=== PATIENT | male | born 1965 | race Caucasian/White ===

== ENCOUNTER 2020-03-23 14:05 | Emergency (ER) | payer OTHER ==
[2020-03-23 14:12] VITALS: BP 155/93; PULSE 96; TEMP 99.5; BMI 36.2
[2020-03-23 15:23] LABS: ALBUMIN 4.4 g/dl (3.4-5.0); CREATININE 1.1 mg/dl (0.55-1.3); POTASSIUM 3.9 mmol/L (3.5-5.1); TOT PROT 7.5 g/dl (6.4-8.2)
[2020-03-23 16:39] LABS: BASO % 0.4 % (0-2.0); EOS % 0.5 % (0-4.5); HEMOGLOBIN 15.6 GM/dL (11.7-16.9); LYMPH % 9.9 % (8-40); MCHC 35.6 g/dl (32.0-35.9); MEAN CELL VOLUME 87.1 fl (80-96); MEAN PLT VOLUME 8.8 fl (7.5-11.1); NEUT % 84.2 % (42.8-82.8); PLATELET COUNT 232 K/MM3 (134-434); RBC 5.05 M/mm3 (4.00-5.60); WHITE BLOOD COUNT 9.2 K/mm3 (4.0-10.0)
== END 2020-03-23 18:49 | disposition home or self-care (01) ==
LOC: FER 14:05
DX: R07.89 Other chest pain (principal); D17.23 Benign lipomatous neoplasm of skin and subcutaneous tissue of right leg
CPT/HCPCS: 36415; 71045-TC-FY; 80053; 84484; 85025; 93005; 99284-25; C9803; U0003

== ENCOUNTER 2020-04-26 05:36 | Day surgery (SDC) | payer OTHER ==
[2020-04-22 16:48] VITALS: BMI 32.1
[2020-04-26] MEDS ORDERED: PROPOFOL 20 ML ONE ×2 (10:39)
[2020-04-26] MEDS ORDERED: MIDAZOLAM HCL 2 MG/2 ML SINGLE DOSE VIAL ONE (10:39)
[2020-04-26] MEDS ORDERED: LIDOCAINE HCL 1%, 10 MG/ML (20ML VIAL) ONE ×2 (10:46→11:36)
[2020-04-26] MEDS ORDERED: ceFAZolin SODIUM 1 GM VIAL ONE (11:01)
[2020-04-26] MEDS ORDERED: ceFAZolin SODIUM 1 GM VIAL IVPB ONE (11:03)
[2020-04-26] MEDS ORDERED: DEXAMETHASONE SOD PHOSPHATE 4 MG/1 ML VIAL ONE (11:17)
[2020-04-26] MEDS ORDERED: ONDANSETRON 4 MG/2 ML VIAL ONE (11:17)
[2020-04-26] MEDS ORDERED: BUPIVACAINE HCL/PF 0.5% (5 MG/ML) 30 ML VIAL IJ ONE ×2 (11:22)
[2020-04-26] MEDS ORDERED: LIDOCAINE HCL 1%, 10 MG/ML (20ML VIAL) SQ ONE ×2 (11:22)
[2020-04-26] MEDS ORDERED: IBUPROFEN 800 MG/8 ML IJ IVPB PRN (12:18)
[2020-04-26] MEDS ORDERED: ONDANSETRON 4 MG/2 ML VIAL IVPUSH PRN (12:18)
[2020-04-26] MEDS ORDERED: oxyCODONE HCL 5 MG TABLET PO PRN (12:18)
[2020-04-26] MEDS ORDERED: LACTATED RINGERS SOLUTION 1,000 ML IV SCH (12:30)
[2020-04-26] MEDS ORDERED: ACETAMINOPHEN 1000 MG/100 ML VIAL (NON FORMULARY) IVPB PRN (12:30)
[2020-04-26 14:46] VITALS: BP 112/61; PULSE 62; TEMP 98.2
== END 2020-04-26 14:46 | disposition home or self-care (01) ==
LOC: JASU-SURG 05:36
PROVIDERS: ATTEND Surgery
PROC: 0JBL0ZZ Excision of Right Upper Leg Subcutaneous Tissue and Fascia, Open Approach (ICD-10-PCS; principal; 2020-04-26 09:30)
DX: D17.23 Benign lipomatous neoplasm of skin and subcutaneous tissue of right leg (principal)
CPT/HCPCS: 88304-TC; 94760

== ENCOUNTER 2022-01-03 20:08 | Inpatient (IN) | payer OTHER ==
[2022-01-03] MEDS ORDERED: SODIUM CHLORIDE 0.9% 1000 ML INFUS.BAG IV ONE (20:20)
[2022-01-03] MEDS ORDERED: ONDANSETRON 4 MG/2 ML VIAL IVPUSH ONE (20:20)
[2022-01-03] MEDS ORDERED: ONDANSETRON 4 MG/2 ML VIAL ONE (20:27)
[2022-01-03 20:44] LABS: ALBUMIN 4.1 g/dl (3.4-5.0); BILIRUBIN,TOTAL 1.9 mg/dl (0.2-1); CALCIUM 9.2 mg/dl (8.5-10); TOT PROT 7.2 g/dl (6.4-8.2)
[2022-01-03 20:48] LABS: HEMATOCRIT 49.4 % (35.4-49); HEMOGLOBIN 17.2 G/dL (11.7-16.9); MCH 30.2 pg (25.7-33.7); MCHC 34.9 g/dl (32.0-35.9); MEAN CELL VOLUME 86.5 fl (80-96); MEAN PLT VOLUME 8.2 fl (7.5-11.1); PLATELET COUNT 265.8 10^3/uL (134-434); RBC 5.71 10^6/uL (4.00-5.60); RDW 14.2 % (11.9-15.9); WHITE BLOOD COUNT 25.8 10^3/uL (4.0-10.8)
[2022-01-03 21:33] LABS: PLATELET ESTIMATE ADEQUATE
[2022-01-03 22:14] VITALS: BMI 31.4
[2022-01-04] MEDS ORDERED: LIDOCAINE VISCOUS 2% ORAL/TOP 15 ML UNIT-DOSE CUP ONE (02:57)
[2022-01-04] MEDS: DEXTROSE 5%-0.45% SALINE 1,000 ML IV SCH (05:50)
[2022-01-04] MEDS: PANTOPRAZOLE SODIUM 40 MG VIAL IVPUSH SCH ×2 (10:11→21:14)
[2022-01-04 19:07] LABS: HEMOGLOBIN 14.9 G/dL (11.7-16.9); MCH 30.8 pg (25.7-33.7); MCHC 35.5 g/dl (32.0-35.9); MEAN CELL VOLUME 86.8 fl (80-96); MEAN PLT VOLUME 8.1 fl (7.5-11.1); PLATELET COUNT 220.1 10^3/uL (134-434); RBC 4.84 10^6/uL (4.00-5.60); WHITE BLOOD COUNT 13.7 10^3/uL (4.0-10.8)
[2022-01-04 19:24] LABS: ALBUMIN 3.5 g/dl (3.4-5.0); BILIRUBIN,TOTAL 1.8 mg/dl (0.2-1); CALCIUM 8.5 mg/dl (8.5-10); CREATININE 0.9 mg/dl (0.55-1.3)
[2022-01-04 20:41] LABS: PLATELET ESTIMATE ADEQUATE
[2022-01-05 08:22] LABS: ALBUMIN 3.5 g/dl (3.4-5.0); BILIRUBIN,TOTAL 2.1 mg/dl (0.2-1); CALCIUM 8.4 mg/dl (8.5-10); CREATININE 0.9 mg/dl (0.55-1.3)
[2022-01-05 09:20] LABS: BASO % 0.4 % (0-2.0); EOS % 1.2 % (0-4.5); HEMATOCRIT 42.1 % (35.4-49); HEMOGLOBIN 14.5 GM/dL (11.7-16.9); LYMPH % 9.8 % (8-40); MCH 29.4 pg (25.7-33.7); MCHC 34.4 g/dl (32.0-35.9); MEAN CELL VOLUME 85.4 fl (80-96); MEAN PLT VOLUME 8.9 fl (7.5-11.1); MONO % 8.3 % (3.8-10.2); NEUT % 80.3 % (42.8-82.8); PLATELET COUNT 232 10^3/uL (134-434); RBC 4.94 M/mm3 (4.00-5.60); RDW 13.3 % (11.9-15.9); WHITE BLOOD COUNT 11.9 K/mm3 (4.0-10.0)
[2022-01-05] MEDS: DEXTROSE 5%-0.45% SALINE 1,000 ML IV SCH (09:26)
[2022-01-05] MEDS: PANTOPRAZOLE SODIUM 40 MG VIAL IVPUSH SCH (09:26)
[2022-01-05] MEDS ORDERED: LIDOCAINE HCL/PF 2% SDV 5ML VIAL ONE (09:57)
[2022-01-05 13:27] VITALS: BP 143/80; PULSE 74; RESP 19; TEMP 99.2
[2022-01-05] MEDS ORDERED: POTASSIUM CHLORIDE 20 MEQ PREMIX IVPB 100 ML IVPB ONE (13:32)
[2022-01-05] MEDS ORDERED: KCL 10 MEQ IVPB 10 MEQ/100 ML INFUS.BAG IVPB SCH (13:45)
== END 2022-01-05 15:15 | disposition short-term general hospital (02) | DRG 392 ==
LOC: FER 20:08 → FM/S 01-04 05:49
PROVIDERS: ADMIT Internal Medicine
PROC: 0DB98ZX Excision of Duodenum, Via Natural or Artificial Opening Endoscopic, Diagnostic (ICD-10-PCS; principal; 2022-01-05 09:51)
DX: K31.89 Other diseases of stomach and duodenum (principal); K31.1 Adult hypertrophic pyloric stenosis; I10 Essential (primary) hypertension; E78.5 Hyperlipidemia, unspecified; K29.60 Other gastritis without bleeding; K27.9 Peptic ulcer, site unspecified, unspecified as acute or chronic, without hemorrhage or perforation; N40.0 Benign prostatic hyperplasia without lower urinary tract symptoms; E66.9 Obesity, unspecified; Z68.31 Body mass index [BMI] 31.0-31.9, adult; Z87.11 Personal history of peptic ulcer disease
CPT/HCPCS: 0241U-QW; 36415; 71045-TC-FY; 74177-TC; 80048; 80053; 81003; 81015; 82962; 83690; 85025; 85027; 87086; 88305-TC; 93005; 99285-25; Q9967

== ENCOUNTER 2024-07-14 09:14 | Day surgery (SDC) | payer OTHER ==
[2024-07-08 16:11] VITALS: BMI 30.7
[2024-07-14] MEDS ORDERED: PROPOFOL 120 ML ONE (11:01)
[2024-07-14 15:56] VITALS: BP 122/80; PULSE 82; RESP 20; TEMP 97.4
== END 2024-07-14 12:08 | disposition home or self-care (01) ==
LOC: FASU-ENDO 09:14
PROVIDERS: ATTEND Internal Medicine Gastroenterology
PROC: 0DB48ZX Excision of Esophagogastric Junction, Via Natural or Artificial Opening Endoscopic, Diagnostic (ICD-10-PCS; 2024-07-14)
PROC: 0DB78ZX Excision of Stomach, Pylorus, Via Natural or Artificial Opening Endoscopic, Diagnostic (ICD-10-PCS; 2024-07-14)
PROC: 0DB68ZX Excision of Stomach, Via Natural or Artificial Opening Endoscopic, Diagnostic (ICD-10-PCS; 2024-07-14)
PROC: 0DBK8ZX Excision of Ascending Colon, Via Natural or Artificial Opening Endoscopic, Diagnostic (ICD-10-PCS; principal; 2024-07-14 10:22)
DX: R93.3 Abnormal findings on diagnostic imaging of other parts of digestive tract (principal); Z98.0 Intestinal bypass and anastomosis status
CPT/HCPCS: 88305-TC; 88342-TC